=== PATIENT | male | born 1995 | race Caucasian/White ===

== ENCOUNTER 2024-09-30 17:59 | Emergency (ER) | payer MEDICARE, SELFPAY ==
--- NOTE | 2024-09-30 18:05 | ED.GENMED ---
ED Provider Triage
<JAZZY Flowers - Last Filed: 09/30/24 18:09>
-
Patient seen by provider in Triage?: Seen in Triage
Attestation: A medical screening examination has been initiated by a qualified medical provider. Based on the assessment performed at this time, it has been determined that an emergent medical condition may exist and the patient has been informed
that further medical evaluation and possible additional diagnostic testing may be needed.
HPI:
28 yr male presents to the ER for evaluation of right ankle pain. 2 weeks ago he jumped a fence and has had pain since. He has had continued pain. Pt is able to weight bear with discomfort. c/ o of pain to right lateral ankle.
GENERAL: Alert , in no apparent distress
EYE: No visual abnormalities.
NECK: Trachea midline
ENT: No visible abnormalities.
LUNGS: No acute respiratory distress
NEUROLOGICAL: Alert and oriented
SKIN: Skin intact. No visible changes.
MUSCULOSKELETAL: Moving extremities normally; tenderness swelling to right lateral malleolus mildly tender to dorsal foot
PSYCH: Normal and appropriate interaction.
This is a medical evaluation conducted in person to initiate diagnostic evaluation and provide initial therapeutics. Please see further documentation by the treating clinician.
History of Present Illness
<JAZZY Flowers - Last Filed: 09/30/24 18:09>
General
Chief Complaint: Musculo-Skeletal Complaint
Time Seen by Provider: 09/30/24 20:05
<Derrek Summers Jr., PA-C - Last Filed: 09/30/24 21:21>
General
Source: patient
Exam Limitations: none
Nursing documentation reviewed up to this point in time: agreed with
History of Present Illness
History of Present Illness:
28-year-old male presenting to the emergency department ongoing right-sided ankle discomfort after twisting his ankle 2 weeks ago. Denies additional concerns no numbness or weakness. Has been walking on it.
Past History
<JAZZY Flowers - Last Filed: 09/30/24 18:09>
Past History
ED Past Medical History: Asthma and Psychiatric (Anxiety, depression, bipolar disorder, schizophrenia, SI, ADHD)
ED Past Surgical History: None
Social History
Tobacco: Smoker
Alcohol: Occasional
Drug: Other (Meth)
Personal: Single
Living: alone
Family History
Family History: Other (Parents with multiple sclerosis)
Review of Systems
<Derrek Summers Jr., PA-C - Last Filed: 09/30/24 21:21>
Review of Systems
Allergies reviewed?: Yes
All Other Systems: ROS reviewed and negative except as documented in HPI and ROS
Phy Exam
<Derrek Summers Jr., PA-C - Last Filed: 09/30/24 21:21>
Physical Exam
Physical Exam:
GENERAL: Alert , in no apparent distress
EYE: pupils equal and reactive
NECK: Supple, no significant adenopathy.
ENT: o/p clr, mmm.
CARDIAC: Regular rate and rhythm .
LUNGS: Clear breath sounds bilaterally, no acute respiratory distress, no wheezes/rales/rhonchi
ABDOMEN: Soft, without focal tenderness, no r/g, no cvat
NEUROLOGICAL: Alert and oriented, no focal neuro deficits
SKIN: Warm and dry, skin intact.
MUSCULOSKELETAL: Discomfort to the right lateral malleolus., well perfused.
PSYCH: Normal and appropriate interaction.
Course
<JAZZY Flowers - Last Filed: 09/30/24 18:09>
Orders/Labs/Results
Orders:
Orders
09/30/24 18:09
Ankle, Right 3 view CR [CR Ankle - Right Min 3 Views *] Urgent
Comment:
Reason For Exam: trauma
Foot, Right 3 View [CR Foot - Right Min 3 Views] Urgent
Comment:
Reason For Exam: trauma
Vital Signs
Initial and Last Documented VS:
Initial Vital Signs
Temp Pulse Resp BP Pulse Ox
97.9 F 91 18 127/82 100
09/30/24 18:06 09/30/24 18:06 09/30/24 18:06 09/30/24 18:06 09/30/24 18:06
Last Documented Vital Signs
Temp Pulse Resp BP Pulse Ox
97.9 F 91 18 127/82 100
09/30/24 18:06 09/30/24 18:06 09/30/24 18:06 09/30/24 18:06 09/30/24 18:06
<Derrek Summers Jr., PA-C - Last Filed: 09/30/24 21:21>
Orders/Labs/Results
Orders:
Orders
09/30/24 18:09
Ankle, Right 3 view CR [CR Ankle - Right Min 3 Views *] Urgent
Comment:
Reason For Exam: trauma
Foot, Right 3 View [CR Foot - Right Min 3 Views] Urgent
Comment:
Reason For Exam: trauma
Vital Signs
Initial and Last Documented VS:
Initial Vital Signs
Temp Pulse Resp BP Pulse Ox
97.9 F 91 18 127/82 100
09/30/24 18:06 09/30/24 18:06 09/30/24 18:06 09/30/24 18:06 09/30/24 18:06
Last Documented Vital Signs
Temp Pulse Resp BP Pulse Ox
97.9 F 91 18 127/82 100
09/30/24 18:06 09/30/24 18:06 09/30/24 18:06 09/30/24 18:06 09/30/24 18:06
<Derrek Summers Jr., PA-C - Last Filed: 09/30/24 21:21>
MDM/Problems Addressed
MDM/Problems Addressed:
28-year-old male presenting to the emergency department today with concerns of right-sided ankle discomfort over the past 2 weeks with inversion injury proceeding. Here patient with good range of motion normal pulses does have tenderness to the
lateral malleolus. X-ray without signs of fracture. Patient with likely sprain will follow-up closely with Ortho. Return precautions given.
<Derrek Summers Jr., PA-C - Last Filed: 09/30/24 21:21>
*Critical Care Note
Total Time (30-74mins, 75-104mins- exclusive of procedures): Not Applicable
ED Attending Note
<JAZZY Flowers - Last Filed: 09/30/24 18:09>
-
Portions of this chart may have been created with voice recognition software.� Occasional wrong word or��sound alike� substitutions may have occurred due to the inherent limitations of voice recognition software.
Discharge Plan
Departure
Patient Disposition: Home (Routine Discharge)
Date of Disposition: 09/30/24
Time of Disposition: 21:15
Patient with high blood pressure during this ER visit?: No
Condition: Good
Covid-19: Not Applicable
Discharge Problem:
Ankle sprain
Instructions: Sprain (DC)
Prescriptions:
No Action
escitalopram oxalate 5 MG tablet
5 mg PO DAILY Qty: 30 0RF
Referrals:
UNKNOWN - PT DOES,NOT KNOW [Family Provider] -
Julio Diaz MD [Active] - Follow up in 5-7 days
Activity Restrictions/Additional Instructions:
You came to the emergency department today with concerns of ankle discomfort. You have an x-ray without signs of fracture. This is likely a sprain. Please rest ice compress and elevate and follow-up closely with orthopedics. Return to the
emergency department for any worsening, new or concerning symptoms.
Interventions
Interventions:
ED-Musculoskeletal Assessment Last Done: 09/30/24 20:54
Discharge Date and Time
Print Language: [place]
[2024-09-30 18:06] VITALS: BP 127/82
== END 2024-09-30 22:05 | disposition home or self-care (01) ==
LOC: EMR 17:59
PROVIDERS: EMERGENCY PHYSICIAN Emergency Medicine
DX: S93.401A Sprain of unspecified ligament of right ankle, initial encounter (principal); X50.1XXA Overexertion from prolonged static or awkward postures, initial encounter; F17.200 Nicotine dependence, unspecified, uncomplicated
CPT/HCPCS: 99283; 73610; 73630

== ENCOUNTER 2025-02-18 01:52 | Emergency (ER) | payer OTHER, SELFPAY ==
[2025-02-18 01:58] VITALS: BP 124/89
[2025-02-18] MEDS: TYLENOL 650 MG PO (02:09)
[2025-02-18] MEDS: ZOFRAN ODT (ORALLY DISINTEGRATING) 4 MG PO (02:10)
[2025-02-18 03:34] VITALS: BP 136/79
[2025-02-18 04:00] VITALS: BP 144/94
[2025-02-18 05:00] VITALS: BP 126/71
[2025-02-18] MEDS: NSS 1000 IV (05:27)
[2025-02-18] MEDS: REGLAN 10 MG IV (05:29)
[2025-02-18] MEDS: TORADOL 15 MG IV (05:29)
[2025-02-18 05:32] LABS: % Basophils 0.4 % (0-2); % Eosinophils 1.3 % (0-6); % Immature Granulocytes 0.3 % (0-0.5); % Lymphocytes 18.9 % (20.5-51.1); % Monocytes 5.4 % (1.7-9.3); % Neutrophils 73.7 % (42.2-75.2); Absolute Basophils 0.1 10^3/uL (0-0.2); Absolute Eosinophils 0.2 10^3/uL (0-0.7); Absolute Lymphocytes 2.6 10^3/uL (1.2-3.4); Absolute Monocytes 0.7 10^3/uL (0.1-0.6); Absolute Neutrophils 10.1 10^3/uL (1.4-6.5); Hemoglobin 14.3 g/dL (13.0-18.0); Mean Corp Hgb Conc. 34.9 g/dL (33.0-37.0); Mean Corpuscular Hgb 29.8 pg (27.0-31.0); Mean Corpuscular Volume 85.4 fL (80.0-94.0); Mean Platelet Volume 9.6 fL (7.4-10.4); Nucleated Red Blood Cells % 0 % (-); Platelet Count 256 10^3/uL (130-400); White Blood Cell Count 13.7 10^3/uL (4.8-10.8)
[2025-02-18 05:52] LABS: ALT (SGPT) 51 U/L (0-50); AST (SGOT) 29 U/L (17-59); Albumin 4.2 g/dl (3.5-5.0); Alkaline Phosphatase 43 U/L (38-126); Blood Urea Nitrogen 15 mg/dl (9-20); Calcium 9.9 mg/dl (8.4-10.2); Carbon Dioxide 28 mmol/L (22-30); Chloride 107 mmol/L (98-107); Glucose 121 mg/dl (70-99); Lipase 153 U/L (23-300); Potassium 4.3 mmol/L (3.5-5.1); Sodium 141 mmol/L (135-145); Total Bilirubin 0.3 mg/dl (0.2-1.3); Total Protein 6.9 g/dl (6.3-8.2); eGFR > 60.00
--- NOTE | 2025-02-18 06:14 | ED.GENMED ---
History of Present Illness
General
Chief Complaint: Abdominal Symptoms
Source: patient
Exam Limitations: none
Time Seen by Provider: 02/18/25 04:59
Nursing documentation reviewed up to this point in time: agreed with
History of Present Illness
History of Present Illness:
29-year-old male past medical history of hyperlipidemia, IBS, presenting to the emergency department today with concerns of headache nausea vomiting diarrhea over the past day or so. Comes he has had some degree of headache for many months now but
specifically today has had nausea vomiting diarrhea which is new. Denies specific abdominal pain.
Past History
Past History
ED Past Medical History: Asthma and Psychiatric (Anxiety, depression, bipolar disorder, schizophrenia, SI, ADHD)
ED Past Surgical History: None
Social History
Tobacco: Smoker
Alcohol: Occasional
Drug: Other (Meth)
Personal: Single
Living: alone
Family History
Family History: Other (Parents with multiple sclerosis)
Review of Systems
Review of Systems
Allergies reviewed?: Yes
All Other Systems: ROS reviewed and negative except as documented in HPI and ROS
Phy Exam
Physical Exam
Physical Exam:
GENERAL: Alert , in no apparent distress
EYE: pupils equal and reactive
NECK: Supple, no significant adenopathy.
ENT: o/p clr, mmm.
CARDIAC: Regular rate and rhythm .
LUNGS: Clear breath sounds bilaterally, no acute respiratory distress, no wheezes/rales/rhonchi
ABDOMEN: Soft, without focal tenderness, no r/g, no cvat
NEUROLOGICAL: Alert and oriented, no focal neuro deficits
SKIN: Warm and dry, skin intact.
MUSCULOSKELETAL: No edema, well perfused.
PSYCH: Normal and appropriate interaction.
Course
Orders/Labs/Results
Orders:
Orders
02/18/25 02:06
Ondansetron Orally Disint [Zofran Odt (Orally Disintegrating)] 4 mg .ROUTE .[facility]
02/18/25 02:07
Acetaminophen [Tylenol] 650 mg .ROUTE .[facility]
02/18/25 02:08
Acetaminophen [Tylenol] 650 mg PO NOW STA
02/18/25 02:10
Ondansetron Orally Disint [Zofran Odt (Orally Disintegrating)] 4 mg PO NOW STA
02/18/25 05:24
Urinalysis Reflex To Culture Urgent
0.9% Sodium Chloride 1000 ml [Nss] 1,000 ml IV BOLUS
Ketorolac [Toradol] 15 mg IV NOW STA
Metoclopramide [Reglan] 10 mg IV NOW STA
02/18/25 05:26
Complete Blood Count/With Diff Urgent
Comprehensive Metabolic Panel Urgent
Lipase Urgent
Abnormal Lab Results
02/18/25
05:26
WBC 13.7 H 10^3/uL
(4.8-10.8)
Absolute Neuts (auto) 10.1 H 10^3/uL
(1.4-6.5)
Absolute Monos (auto) 0.7 H 10^3/uL
(0.1-0.6)
Lymphocytes % 18.9 L %
(20.5-51.1)
Glucose 121 H mg/dl
(70-99)
ALT 51 H U/L
(0-50)
02/18/25 05:26
02/18/25 05:26
Vital Signs
Initial and Last Documented VS:
Initial Vital Signs
Temp Pulse Resp BP Pulse Ox
97.7 F 72 24 124/89 99
02/18/25 01:58 02/18/25 01:58 02/18/25 01:58 02/18/25 01:58 02/18/25 01:58
Last Documented Vital Signs
Temp Pulse Resp BP Pulse Ox
97.7 F 65 20 126/71 98
02/18/25 03:49 02/18/25 06:00 02/18/25 06:00 02/18/25 05:00 02/18/25 06:00
MDM/Problems Addressed
MDM/Problems Addressed:
29-year-old male presenting to the emergency department today with concerns of headache nausea vomiting diarrhea. Here vital signs are normal patient no distress was sleeping soundly during my examination. When he would wake up he would have some
complaint of nausea and diarrhea. No reproducible abdominal pain. Moving all extremities and able to interact. Labs are without acute abnormalities. Patient was given medications for his headache but otherwise stable for discharge. Return
precautions given.
*Critical Care Note
Total Time (30-74mins, 75-104mins- exclusive of procedures): Not Applicable
ED Attending Note
-
Portions of this chart may have been created with voice recognition software.� Occasional wrong word or��sound alike� substitutions may have occurred due to the inherent limitations of voice recognition software.
Discharge Plan
Departure
Patient Disposition: Home (Routine Discharge)
Date of Disposition: 02/18/25
Time of Disposition: 06:16
Patient with high blood pressure during this ER visit?: No
Condition: Good
Covid-19: Not Applicable
Discharge Problem:
Headache, Nausea, vomiting, and diarrhea
Prescriptions:
No Action
escitalopram oxalate 5 MG tablet
5 mg PO DAILY Qty: 30 0RF
Referrals:
[facility] [Provider Group]
UNKNOWN - PT DOES,NOT KNOW [Family Provider]
Activity Restrictions/Additional Instructions:
You came to the emergency department today with concerns of multiple symptoms. Here you had a reassuring assessment. Return for any worsening, new or concerning symptoms. Please follow closely with a primary care doctor.
Interventions
Interventions:
*Risk Screen - Suicide Last Done: 02/18/25 02:05
*General Assessment Last Done: 02/18/25 03:50
*Neglect/Abuse Screening Last Done: 02/18/25 03:34
*ED- Fall Risk Assessment Last Done: 02/18/25 03:34
*ED COVID-19 Vaccine History Last Done: 02/18/25 03:34
OJ-Zfnuud-Wjkopoiivc Assessment Last Done: 02/18/25 05:20
Discharge Date and Time
Print Language: AZERI
--- NOTE | 2025-02-18 06:40 | EDRN ---
while reviewing discharge paperwork, pt ripped off telemetry leads and was mumbling to himself. offered to call family or friends for him, pt refused to answer. pt left room without signing discharge paperwork, shirtless and without shoes.
--- NOTE | 2025-02-18 06:48 | EDRN ---
pt walked back to room, provided pt with paper scrub top. this RN called the listed number on file for pt's mother, pt adamant that it isn't an accurate number but doesn't know the correct number to call. pt left his ED room without his discharge
paperwork, ignoring this nurse as he walked to waiting room
== END 2025-02-18 06:50 | disposition home or self-care (01) ==
LOC: EMR 01:52
PROVIDERS: Physician Assistant; EMERGENCY PHYSICIAN Student in an Organized Health Care Education/Training Program
DX: R51.9 Headache, unspecified (principal); R11.2 Nausea with vomiting, unspecified; R19.7 Diarrhea, unspecified; E78.5 Hyperlipidemia, unspecified; K58.9 Irritable bowel syndrome, unspecified; F17.200 Nicotine dependence, unspecified, uncomplicated
CPT/HCPCS: 99284; 96374; 96375; 96361; 80053; 83690; 85025